=== PATIENT | male | born 1975 | race Caucasian/White ===

== ENCOUNTER 2016-12-10 03:23 | Emergency (ER) | payer BC ==
--- NOTE | 2016-12-10 03:32 | ERNOTE ---
Allergy Symptoms - ER Date of Service: 12/10/16 Presenting Symptoms: throat swelling Time Seen by Provider: 12/10/16 03:31 Source: patient Allergies/Adverse Reactions: Allergies No Known Allergies Allergy (Unverified 12/10/16 03:29) Home Medications: HOME MEDICATIONS Amoxicillin 875 mg PO BID #20 tablet 12/10/16 [Last Taken Unknown] Methylprednisolone [Medrol Dosepak] 4 mg PO QID #21 tab 12/10/16 [Last Taken Unknown] Testosterone Cypionate [Depo-Testosterone] 100 mg IM Q7D 12/10/16 [Last Taken Unknown] - History of Present Illness Narrative: AWAKENED WITH FEELING OF SWELLING IN HIS THROAT. HE SAYS THIS HAS NEVER HAPPENED BEFORE. NO THROAT PAIN BUT HE FELT SOMETHING IN THE BACK OF THE THROAT AND IT HAS BEEN MAKING HIM GAG. HE SAYS HE HAD NOTICED A LITTLE BLOOD IN HIS MOUTH WHEN HE FIRST AWAKENED WITH THE GAGGING FEELING. HE DENIES ANY MED OTHER THAN TESTOSTERONE. NO HISTORY OF TRAUMA TO HIS THROAT. HE LAST HAD A SOFT SHELL TYPE DISH FROM [employer] BEFORE GOING TO BED AND DENIES ANY TRAUMA THEN. Review of Systems - Review of Systems Constitutional: Present: See HPI ENT: Present: See HPI, throat swelling Respiratory: Present: no symptoms reported Cardiology: Present: no symptoms reported Gastrointestinal/Abdominal: Present: no symptoms reported Genitourinary: Present: no symptoms reported Musculoskeletal: Present: no symptoms reported Skin: Present: no symptoms reported Neurological: Present: no symptoms reported Endocrine: Present: no symptoms reported Hematologic/Lymphatic: Present: no symptoms reported Psych: Present: no symptoms reported All Other Systems: All systems neg except as marked - Patient's Past Medical History Patient History - Medical: No pertinent hx Patient History - Cardiac/Respiratory: Aneurysm Patient History - Cancer: No Hx of Cancer Patient History - Surgical Procedures: Cholecystectomy Physical Exam - Physical Exam General Appearance: Present: wd/wn, alert, mild distress, anxious Eye Exam: Normal inspection: bilateral Ears, Nose, Throat: Present: normal except - - HISS UVULA HAS MILD EDEMA AND INCREASED LENGTHENING TO ABOUT 30% GREATER THAN IT SHOULD BE. THERE IS NO OTHER EDEMA TO THE MOUTH OR PHARYNX. THERE ISS NO SIGN OF BLEEDING. THE INFERIOR END OF THE UVULA ALMOST TOUCHES THE TOP OF THE TONGUE. IT ISS SL. REDDENED. NO ULCERS OR EXUDATE NOTED. Neck: Present: normal inspection. Absent: lymphadenopathy (R), lymphadenopathy (L) Respiratory: Present: no respiratory distress Neurological Exam: Present: alert, oriented Skin Exam: Present: normal color, warm/dry. Absent: skin rash ED Progress - Vital Signs Patient's Vital Signs:: I have reviewed the patient's vital signs. Vital Signs: VS ARE NORMAL - Progress/Reassessment Progress:: Unchanged Progress Note-Subjective: 12/10/16 07:01 PT HAD SC EPI AND ICE AND TIME BUT DID NOT SHOW ANY IMPROVEMENT BUT NEITHER WAS IT ANY WORSE. Plan - Plan Plan: After watching him for a couple of hours the swelling did not worsen but did not resolve either. Departure Clinical Impression: Uvular edema - Departure Disposition: Home Follow Up Needed Condition: Fair Instructions: Uvulitis Additional Instructions: It is unclear the about the cause of your uvula swelling . Take the meds as directed and follow up with your family doctor to make sure it is improving or return to the er if worse. I have prescribed an anti inflammatory medication , steroid , and an antibiotic medication, amoxicillin. take as directed. there is a chance this a a mild form of angioedema which can be a familial problem and could cause further problem in the future. Your doctor can get youto the proper specialist if they think that you are having that kind of issue. Prescriptions: Amoxicillin 875 mg PO BID #20 tablet Methylprednisolone [Medrol Dosepak] 4 mg PO QID #21 tab
[2016-12-10] MEDS ORDERED: EPINEPHrine 1 MG/ML AMPUL ONE (03:42)
[2016-12-10] MEDS ORDERED: EPINEPHrine 1 MG/ML AMPUL SC ONE (03:44)
[2016-12-10 05:46] VITALS: BP 119/76
== END 2016-12-10 05:45 | disposition home or self-care (01) ==
LOC: ER 03:23
DX: R60.9 Edema, unspecified (principal)